=== PATIENT | male | born 1980 | race Caucasian/White ===

== ENCOUNTER 2016-05-13 11:22 | Inpatient (IN) | payer OTHER, MEDICAID ==
[~2016-05-13] VITALS: Ht 177.8 cm; Wt 179.0 kg
[~2016-05-13 11:22] MED LIST: BACL20TA PO; DOCU-41 PO; MULT1CAP33 PO; OXYB5TAB10 PO; PHEN100C11 PO
[2016-05-13 11:27] VITALS: BP 124/71; PULSE 102; RESP 18; O2SAT 99
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
[2016-05-13 13:10] LABS: BASOPHILS % (AUTO) 0.5 % (0-3); EOSINOPHILS % (AUTO) 2.3 % (0-5); MONOCYTES % (AUTO) 6.7 % (4-12); Mean Corpuscular Hemoglobin 18.7 pg (27.0-35.0); Mean Corpuscular Volume 61.8 fL (81-100); NEUTROPHILS % (AUTO) 76.2 % (40-74); Platelet Count 627 bil/L (150-400)
[2016-05-13] MEDS ORDERED: Piperacillin-Tazo 3.375 Gm Inj 3.375 GM in Dextrose 5% Minibag Plus 50 ML IV ONE (14:05)
[2016-05-13] MEDS ORDERED: MGPE IV ONE (14:10)
[2016-05-13] MEDS ORDERED: SODIUM CHLORIDE 0.9% IV ONE (14:10)
[2016-05-13] MEDS ORDERED: FOSPHENYTOIN IV ONE (14:10)
[2016-05-13 14:17] LABS: ERYTHROCYTE SEDIMENTATION RATE 109 mm/hr (0-15)
--- NOTE | 2016-05-13 14:17 | DRSVH ---
PROCEDURE: X-RAY PELVIS W/LAT HIP (RT) ([id number]) INDICATIONS: pain, fall TECHNIQUE: AP pelvis with lateral view(s) of the right hip(s). COMPARISON: [facility], CR, XR HIP 2VW RT, 10/18/2015, 16:52. [facility], CR , XR HIP 2VW RT, 02/29/2016, 16:30. [facility], CR, XR KNEE 3VW RT, 03/14/2016, 15:53. [facility], CR, PELVIS W/LAT HIP (RT) (PNL), 10/20/2013, 20:16[facility], [facility], PELVIS W/LAT HIP (RT) (PNL), 08/21/2013, 14:23. FINDINGS: Bones: No fractures or dislocations. Pelvic ring appears intact. No suspicious bony lesions. Soft tissues: The visualized bowel gas pattern is normal. No suspicious soft tissue calcifications. IMPRESSION: No. There is prominent distortion and sclerosis involving the previously fractured right hip and also associated lateral fixation plate and dynamic hip screw there are only partially visual ized by this study. Depending on the clinical status followup by nuclear remote medicine bone scan m ay be necessary, versus delayed plain film imaging or even CT scanning. Dictated by: Jose Arreola M.D. on 05/13/2016 at 13:47 Approved by: Jose Arreola M.D. on 05/13/2016 at 14:16
[2016-05-13 15:44] VITALS: BP 111/70; PULSE 87; RESP 14; O2SAT 100
--- NOTE | 2016-05-13 16:14 | DRSVH ---
PROCEDURE: CT HIP RIGHT WITH CONTRAST ([id number]) INDICATIONS: eval for deep space infection, known buttock wound TECHNIQUE: After the administration of intravenous contrast, 3 mm axial sections acquired of the pelvis, with co jennifer and sagittal reformats. For radiation dose reduction, the following was used: automated expos ure control, adjustment of mA and/or kV according to patient size. COMPARISON: [facility], CT, ABD/PELVIS W/CON (PNL), 07/02/2014, 8:34. FINDINGS: Image quality: Partially degraded by mild patient motion during image acquisition and also metal leon fact from a left-sided dynamic hip screw and a lateral fixation plate. Bones: Sclerosis appears to have progressed in relationship to the appearance by CT scanning of the p roximal right femur, with reference to the comparison CT scan from 07/02/14 when rim-enhancing fluid c ollections at been present anteriorly adjacent to the previously fractured right hip. No abnormal fl uid collections in those areas anteriorly now are found. There is, however, decubitus ulceration ext ending from the posterior right buttock area directly to the posterior border of the margin of the ac etabulum and virtually to the posterior border of the femoral head in that area. This area is quite poorly visualized related to the dense metal artifact, and therefore accurate assessment for presence of interval ostiolysis is not possible. Soft tissues: No abscess formation is found, within the soft tissues well visualized. The deep decub itus ulceration present over the right hip area posteriorly does not appear to track cephalad into th e area of adjacent bowel structures in the lower pelvis/rectum area. IMPRESSION: Extensive deep decubitus ulceration posteriorly in the buttock area to the posterior border of the ri ght femoral head. Prior hip fracture fixation on the right with lateral fixation plate and dynamic h ip screw produces metal artifact causing poor visualization exactly in the area of the deepest extent of the decubitus ulceration to the femoral head. Nuclear medicine three-phase bone scan likely is w arranted to assist in determining whether osteomyelitis may be present given this appearance. Additi onally, there is what appears to be mild interval increased sclerosis in the area of prior hip fractu re which may indicate presence of chronic osteomyelitis in the intertrochanteric area of sclerosis. A prior CT scan from 07/02/14 it identified what appears to have been abscess formation at the anterio r aspect of the right hip joint. That area has resolved. No posterior or other area of abscess form ation is found. No fistula extension to adjacent bowel structures is suspected. Dictated by: Jose Arreola M.D. on 05/13/2016 at 16:04 Approved by: Jose Arreola M.D. on 05/13/2016 at 16:12
[2016-05-13 16:34] VITALS: BP 111/70; PULSE 87; RESP 14; O2SAT 100
[2016-05-13] MEDS ORDERED: Ondansetron 2 mg/mL 2 mL Inj IVPUSH PRN (17:00)
[2016-05-13] MEDS ORDERED: Alum-Mag Hydrox-Simeth 30 mL Suspension PO PRN (17:00)
[2016-05-13] MEDS ORDERED: Polyethylene Glycol (PEG) 17 Gm Powder PO PRN (17:00)
[2016-05-13 17:01] VITALS: BP 119/69; PULSE 83; RESP 20; O2SAT 99
--- NOTE | 2016-05-13 18:16 | NUR ---
Wound Care Wound evaluation order received, pt seen at bedside. 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 Pt is paraplegic and reported to Wound Center [facility] [employer] that he has recently relapsed in his recreational drug use. Wounds Rt Ischium- stage 4 PU (POA) 4.5 cm x 6 cm x 1.5 cm, erythematous,odoriferous, pale granulation tissue, min drainage. Rt Knee (distal) 2.5 cm x 2 cm x 0.4 cm.dressing hydrogel, duoderm tape. Rt Knee (proximal) 3.7 cm x 2.7 cm x 0.2 cm, dressing hydrogel, duoderm tape. Rt Great toe 2 cm x 1 cm x 0.2 cm, dressing mepilex Rt 2nd toe 1 cm x 1 cm x o.4 cm, dressing mepilex Lt Knee (distal) 2 cm x 2.5 cm x 0.3 cm.dressing hydrogel, duoderm tape. Lt knee (proximal) 1.5 cm x 3.5 cm x 0.5 cm, dressing hydrogel, duoderm tape. Lt dorsum foot 1 cm x 1.5 cm x 0.4 cm,dressing mepilex. Question that ischial PU could be source of infection, irrigated this copiously with betadine hydrogen peroxide solution 50/50 and redressed with moist Aquacell ag and abd pad. Pt is on clinitron bed, will recheck on patient tomorrow.
--- NOTE | 2016-05-13 18:22 | NUR ---
Admit [facility]PC Admit complete using history from previous visits & without pt participation due to drowsiness and difficulty to arouse long enough to answer questions. Pt personal belongings brought in by brother and checked in by CUTTER OPERATOR. Care continues.
--- NOTE | 2016-05-13 18:35 | NUR ---
Home Meds Home meds (3) stored in drawer outside room brother to grape picker tomorrow
[2016-05-13] MEDS: 0.9% Sodium Chloride 1,000 ML IV SCH (19:25)
--- NOTE | 2016-05-13 19:39 | PCM.CONPHA ---
Subjective Date of Service: May 13, 2016 Reason for Pharmacy Consult: Anticoagulation Management Objective Vital Signs Date Time Temp Pulse Resp B/P Pulse Ox O2 Delivery O2 Flow Rate FiO2 05/13/16 17:01 36.8 83 20 119/69 99 Room Air 05/13/16 16:34 36.3 87 14 111/70 100 Room Air 05/13/16 15:44 36.3 87 14 111/70 100 Room Air 05/13/16 11:27 36.1 102 18 124/71 99 Room Air Weight (Kilograms): 179.000 Height (Feet): 5 Height (Inches): 10.00 Test 05/13/16 13:00 05/13/16 14:40 05/13/16 16:20 White Blood Count 9.6th/mm3 (3.8-10.1) Red Blood Count 4.87mil/mm3 (4.40-5.80) Hemoglobin 9.1g/dL (13.8-17.2) Hematocrit 30.1% (41.0-50.0) Mean Corpuscular Volume 61.8fL (81-100) Mean Corpuscular Hemoglobin 18.7pg (27.0-35.0) Mean Corpuscular Hemoglobin Concent 30.2% (32.0-37.0) Red Cell Distribution Width 18.5% (12.3-15.4) Platelet Count 627bil/L (150-400) Neutrophils (%) (Auto) 76.2% (40-74) Lymphocytes (%) (Auto) 14.0% (14-46) Monocytes (%) (Auto) 6.7% (4-12) Eosinophils (%) (Auto) 2.3% (0-5) Basophils (%) (Auto) 0.5% (0-3) Erythrocyte Sedimentation Rate 109mm/hr (0-15) Sodium Level 139mEq/L (134-144) Potassium Level 3.6mEq/L (3.5-5.2) Chloride Level 99mEq/L (97-108) Carbon Dioxide Level 25mmol/L (18-29) Blood Urea Nitrogen 7mg/dL (6-20) Creatinine 0.63mg/dL (0.76-1.27) Estimat Glomerular Filtration Rate 155mL/min (>59) Glucose Level 96mg/dL (60-99) Calcium Level 8.9mg/dL (8.5-10.1) Total Bilirubin 0.2mg/dL (0.0-1.2) Aspartate Amino Transf (AST/SGOT) 15U/L (0-50) Alanine Aminotransferase (ALT/SGPT) 9U/L (0-44) Alkaline Phosphatase 186U/L (25-150) C-Reactive Protein 12.4mg/dL (0.0-0.5) Total Protein 9.3g/dL (6.4-8.4) Albumin 3.2g/dL (3.4-5.0) Phenytoin (Dilantin) Level 4.2uG/mL (10.0-20.0) Hold Purple Top Tube Received (Received) Hold Blue Top Tube Received (Received) Hold Red Top Tube Received (Received) Hold [place] Top Tube Received (Received) Hold Calder[place] Top Tube Received (Received) Hold Urine Received (Received) Assessment/Plan Assessment/Plan Lovenox per Rx : Indication: Prophylaxis BMI > 56 SCR: 0.63 HCT 30.1, PLT 627 Lovenox 40mg q12h Lalo Ennis PharmD May 13, 2016 19:39
--- NOTE | 2016-05-13 20:00 | NUR ---
Percocet Verified by this RN with the pt that he's taken oxycodone in the past w/o adverse reaction. [facility] notified. Addendum: 05/13/16 at 2341 by ANGEL NOONAN RN percocet given @20:45. Pt is intermittently sleeping; yelling out and cursing when awake. When this RN checked on the pt, he yelled, "Why did you wake me up?". no adverse reaction noted from percocet at this time. Refusing care and Lovenox even after educating pt.
[2016-05-13] MEDS: oxyCODONE-Acetamin 5-325 mg Tablet PO PRN (20:44)
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
[2016-05-13 23:50] VITALS: BP 93/50; PULSE 90; RESP 20; O2SAT 98
[2016-05-14 00:41] LABS: APPEARANCE,URINE SLIGHTLY CLOUDY (CLEAR,HAZY); COLOR,URINE YELLOW (YELLOW); OCCULT BLOOD,URINE TRACE (NEGATIVE); UROBILINOGEN,URINE NORMAL (NORMAL)
[2016-05-14] MEDS: oxyCODONE-Acetamin 5-325 mg Tablet PO PRN (02:32)
[2016-05-14] MEDS: 0.9% Sodium Chloride 1,000 ML IV SCH (02:57)
[2016-05-14 03:41] VITALS: BP 144/67; PULSE 102; RESP 20; O2SAT 98
--- NOTE | 2016-05-14 04:44 | NUR ---
refusal of care/pain Pt refused to be assessed completely, turning his IV pump off; refusing IVF and lovenox even after pt education. tossing and turning in bed; yelling out and cursing when awake. requesting more pain meds for back pain. baclofen and Percocet given as ordered. Rec'd an order for OT dose of Ketorolac; given with minimal relief. Rec'd an order for 2mg IV morphine. given-pt sleeping at this time w/o s/s of discomfort. on clinitron bed. some visible dressings CDI. suprapubic cath patent draining cloudy, yellow urine. hourly rounding done.
[2016-05-14 05:22] VITALS: BP 138/72; PULSE 90; RESP 20; O2SAT 97
[2016-05-14] MEDS ORDERED: oxyCODONE-Acetamin 10-325 mg Tablet PO PRN ×3 (08:25→15:00)
[2016-05-14] MEDS ORDERED: Phenytoin 100 mg ER Capsule PO SCH (08:30)
[2016-05-14] MEDS ORDERED: Vancomycin Dose per Pharmacist XX SCH (08:30)
--- NOTE | 2016-05-14 10:09 | NUR ---
Pt left AMA Pt left AMA at approx 1005, AMA paperwork signed, pt aware of risks in leaving early. Home meds in pharmacy being retrieved by Mela Merlos RN and will meet pt in lobby to give to him. IV removed intact, no tele. All other belongings including personal WC taken with pt.
--- NOTE | 2016-05-14 10:17 | NUR ---
Social Work: AMA MANAGER OF PROGRAM notified by nursing that pt has left AMA. Veronique Kinsey MSW
--- NOTE | 2016-05-14 14:10 | DRSVH ---
PROCEDURE: NM BONE SCAN THREE PHASE RADIOPHARMACEUTICAL: 26.8 mCi Tc-99m MDP IV. INDICATIONS: right hip osteomyelitis TECHNIQUE: Multiple bone scintigrams were obtained after intravenous injection of Tc-99m MDP, including flow, bl ood pool, and delayed images centered to the region of interest. COMPARISON: [facility], CT, CT HIP RT W CON, 05/13/2016, 15:12. FINDINGS: There is slightly increased blood flow to the right hip. There is slightly increased radiot racer activity region right hip in the intermediate blood pool images. Delayed images demonstrate inc reased radiotracer uptake in the right hip. There is a focus of osteopenia within the proximal right femur compatible with presence of dynamic compression screw and sideplate placed for ORIF of intertro chanteric right hip fracture. IMPRESSION: Increased radiotracer uptake in the region of the right hip during all phases of the jose roberto dy the concerning for right hip osteomyelitis. Dictated by: Marcela Culp MD, PhD on 05/14/2016 at 14:03 Approved by: Marcela Culp MD, PhD on 05/14/2016 at 14:08
--- NOTE | 2016-05-14 17:26 | PCM.DC.MED ---
Discharge Summary Date of Service May 14, 2016 Dates of Hospitalization Date of Hospital Admission May 13, 2016 at 15:27 Date of Discharge: May 14, 2016 Providers: Admitting Physician: Blas Kowalski MD Primary Care Physician: David Lin DO Attending Physician: Blas Kowalski MD Diagnosis at Time of Discharge Diagnosis at Time of Discharge Acute encephalopathy secondary to opioid abuse Consultations Orthopedic Procedures XRay, CTs & MRIs X-Ray Interpretation Xray Interpretation: IMPRESSION: No. There is prominent distortion and sclerosis involving the previously fractured right hip and also associated lateral fixation plate and dynamic hip screw there are only partially visualized by this study. Brief History H&P performed by Patient is a 35 year old male with an extensive medical history as outlined below who is presenting to the ER after patients brother found him on the floor of his apartment. Patient is a poor historian and does not provide much relevant history, however upon speaking to the patients grand mother it appear that the patient had not been adhering to his medication regimen and was not allowing wound care to change his wound dressings for his hip. Patient additionally admits to using methamphetamine and heroin, specifically the patient mentions that he has been injecting heroin into his buttocks recently. Patient last used heroin yesterday according to the patient. As per the grandmother the patient had a seizure a few days ago and refused to go to the hospital. Today the patients brother found the patient facedown in his living room. EMT was called and the patient was arousable, however it is unclear to as the inciting factor that may have caused this. Patient at the time of exam, has a very significant wound present on his buttocks however there was some lauren purulent drainage however there is good viable tissue present. Patient will be admitted. Hospital Course Patient is a 35 year old male with a unfortunate history that is being admitted after decreased compliance to medication and dressing changes. patient was found passed out on his floor by his brother. Patient was first seen this morning, plan was to assess his buttock wound with bone scan, orthopedic was consulted. While awaiting the result, I got the report from the nurse that patient left AGAINST MEDICAL ADVICE with assistance of his brother,who taken him on wheelchair out of hospital. Buttock wound - Patient has a large sacral wound that apparently had purulent drainage on exam. - at the time of my exam, the wound was cleared of all purulent material and wound care was en route - the xray was inconclusive given the history of trauma - will advise to obtain MRI of the hip, and based on findings start antibiotics - wound care consult placed - follow up blood cultures Seizure disorder - Patient has an established seizure disorder - Patient has not been compliant with his phenytoin - His levels were sub optimal on arrival - Phenytoin infusion was given and will continue with home dose Neurogenic bladder - Patient has decreased sensation from his bladder - upon changing santana bag his urine smelled foul - will send out urine analysis DVT ppx via loveonox GI ppx not warranted Exam Vital Signs (Last) Date Time Temp Pulse Resp B/P Pulse Ox O2 Delivery O2 Flow Rate FiO2 05/14/16 05:22 37.0 90 20 138/72 97 Room Air Exam NAD, comfortably laying down on the bed no JVD, MMM, no LAD RRR, nl s1, s2 no mrg CTAB, no w,c S,ND,NT,normoactive BS+ Right buttock sterilely dressed Test 05/13/16 13:00 05/13/16 14:40 05/13/16 16:20 White Blood Count 9.6th/mm3 (3.8-10.1) Red Blood Count 4.87mil/mm3 (4.40-5.80) Hemoglobin 9.1g/dL (13.8-17.2) Hematocrit 30.1% (41.0-50.0) Mean Corpuscular Volume 61.8fL (81-100) Mean Corpuscular Hemoglobin 18.7pg (27.0-35.0) Mean Corpuscular Hemoglobin Concent 30.2% (32.0-37.0) Red Cell Distribution Width 18.5% (12.3-15.4) Platelet Count 627bil/L (150-400) Neutrophils (%) (Auto) 76.2% (40-74) Lymphocytes (%) (Auto) 14.0% (14-46) Monocytes (%) (Auto) 6.7% (4-12) Eosinophils (%) (Auto) 2.3% (0-5) Basophils (%) (Auto) 0.5% (0-3) Erythrocyte Sedimentation Rate 109mm/hr (0-15) Sodium Level 139mEq/L (134-144) Potassium Level 3.6mEq/L (3.5-5.2) Chloride Level 99mEq/L (97-108) Carbon Dioxide Level 25mmol/L (18-29) Blood Urea Nitrogen 7mg/dL (6-20) Creatinine 0.63mg/dL (0.76-1.27) Estimat Glomerular Filtration Rate 155mL/min (>59) Glucose Level 96mg/dL (60-99) Calcium Level 8.9mg/dL (8.5-10.1) Total Bilirubin 0.2mg/dL (0.0-1.2) Aspartate Amino Transf (AST/SGOT) 15U/L (0-50) Alanine Aminotransferase (ALT/SGPT) 9U/L (0-44) Alkaline Phosphatase 186U/L (25-150) C-Reactive Protein 12.4mg/dL (0.0-0.5) Total Protein 9.3g/dL (6.4-8.4) Albumin 3.2g/dL (3.4-5.0) Phenytoin (Dilantin) Level 4.2uG/mL (10.0-20.0) Hold Purple Top Tube Received (Received) Hold Blue Top Tube Received (Received) Hold Red Top Tube Received (Received) Hold Alta Top Tube Received (Received) Hold Caldera Top Tube Received (Received) Urine Color Yellow (YELLOW) Urine Appearance Slightly cloudy Urine pH 7.0 (5.0-8.0) Urine Specific Victoria 1.010 (1.003-1.035) Urine Protein Negativemg/dL (NEG,TRACE) Urine Glucose (UA) Negativemg/dL (NEGATIVE) Urine Ketones 15mg/dL (NEGATIVE) Urine Occult Blood Trace (NEGATIVE) Urine Nitrite Positive (NEGATIVE) Urine Bilirubin Negative (NEGATIVE) Urine Urobilinogen Normalmg/dL (NORMAL) Urine Leukocyte Esterase Moderate (NEGATIVE) Urine RBC 0-2/hpf (0-2) Urine WBC 11-50/hpf (0-5) Urine Epithelial Cells Occasional/hpf (NONE-MOD) Urine Crystals None seen (NONE SEEN) Urine Bacteria Many/hpf (NONE-FEW) Urine Hyaline Casts None/lpf (NONE) Urine Granular Casts None seen (NONE SEEN) Urine Waxy Casts None seen (NONE SEEN) Urine Red Blood Cell Casts None seen (NONE SEEN) Urine White Blood Cell Casts None seen (NONE SEEN) Urine Mucus None seen (None Seen) Urine Trichomonas None seen (NONE SEEN) Urine Yeast None (NONE SEEN) Urinalysis Comment Urine Culture Reflexed Indicated Hold Urine Received (Received) Discharge Medications Discharge Medications Baclofen (Baclofen) 20 Mg Tablet 20 MG PO QID (Reported) Oxybutynin Chloride (Oxybutynin Chloride) 5 Mg Tablet 5 MG PO TID (Reported) Phenytoin Sodium Extended (Phenytoin Sodium Extended) 100 Mg Capsule 300 MG PO BID (Reported) As needed Docusate Sodium (Colace) 100 Mg Capsule 100 MG PO BID PRN PRN For Constipation ( Reported) Followup Plan Disposition: pt left AGAINST MEDICAL ADVICE Time spent 30 minutes Eric Troy MD May 14, 2016 17:26
[2016-05-15] MEDS ORDERED: CIPR-231 PO (21:50)
[2016-05-15] MEDS ORDERED: CIPR-198 PO (22:01)
== END 2016-05-14 10:07 | disposition left against medical advice (07) | DRG 380 ==
LOC: SED 11:22 → MPC 15:27
PROVIDERS: ADMIT Internal Medicine; ATTEND Internal Medicine
DX: L89.314 Pressure ulcer of right buttock, stage 4 (principal); G82.22 Paraplegia, incomplete; M86.8X8 Other osteomyelitis, other site; L89.214 Pressure ulcer of right hip, stage 4; S79.911A Unspecified injury of right hip, initial encounter; G40.909 Epilepsy, unspecified, not intractable, without status epilepticus; F17.200 Nicotine dependence, unspecified, uncomplicated; N31.9 Neuromuscular dysfunction of bladder, unspecified; D50.9 Iron deficiency anemia, unspecified; Z96.641 Presence of right artificial hip joint; F11.10 Opioid abuse, uncomplicated; Y92.009 Unspecified place in unspecified non-institutional (private) residence as the place of occurrence of the external cause; Z91.19 Patient's noncompliance with other medical treatment and regimen; W19.XXXA Unspecified fall, initial encounter; V89.2XXS Person injured in unspecified motor-vehicle accident, traffic, sequela

== ENCOUNTER 2016-05-15 19:01 | Emergency (ER) | payer MEDICAID, OTHER ==
[~2016-05-15] VITALS: Ht 177.8 cm; Wt 77.3 kg
[~2016-05-15 19:01] MED LIST changes: -MULT1CAP33 PO
[2016-05-15 19:06] VITALS: BP 119/72; PULSE 127; RESP 20; O2SAT 100
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
[2016-05-15 20:17] LABS: BASOPHILS % (AUTO) 0.3 % (0-3); EOSINOPHILS % (AUTO) 3.3 % (0-5); MONOCYTES % (AUTO) 10.3 % (4-12); Mean Corpuscular Hemoglobin 18.6 pg (27.0-35.0); Mean Corpuscular Volume 62.4 fL (81-100); NEUTROPHILS % (AUTO) 64.6 % (40-74); Platelet Count 577 bil/L (150-400)
[2016-05-15 20:27] LABS: APPEARANCE,URINE SLIGHTLY CLOUDY (CLEAR,HAZY); COLOR,URINE YELLOW (YELLOW)
[2016-05-15] MEDS ORDERED: Dalbavancin Inj 1,500 MG in Dextrose 5% 500 ML IV ONE (20:30)
[2016-05-15 20:32] LABS: OCCULT BLOOD,URINE TRACE (NEGATIVE); UROBILINOGEN,URINE NORMAL (NORMAL)
[2016-05-15 20:35] LABS: Magnesium 1.9 mg/dL (1.6-2.6)
[2016-05-15] MEDS ORDERED: CIPR-231 PO (21:50)
[2016-05-15 21:52] LABS: ERYTHROCYTE SEDIMENTATION RATE > 140 mm/hr (0-15)
[2016-05-15] MEDS ORDERED: CIPR-198 PO (22:01)
== END 2016-05-15 22:11 | disposition home or self-care (01) ==
LOC: SED 19:01
DX: M86.18 Other acute osteomyelitis, other site (principal); D72.829 Elevated white blood cell count, unspecified; D64.9 Anemia, unspecified; N30.00 Acute cystitis without hematuria; B96.89 Other specified bacterial agents as the cause of diseases classified elsewhere; G82.22 Paraplegia, incomplete; G40.909 Epilepsy, unspecified, not intractable, without status epilepticus; F11.20 Opioid dependence, uncomplicated; F15.20 Other stimulant dependence, uncomplicated; L89.319 Pressure ulcer of right buttock, unspecified stage; F17.200 Nicotine dependence, unspecified, uncomplicated; Z87.440 Personal history of urinary (tract) infections; Z98.890 Other specified postprocedural states; Z96.0 Presence of urogenital implants; Z87.828 Personal history of other (healed) physical injury and trauma; Z86.14 Personal history of Methicillin resistant Staphylococcus aureus infection; Z86.19 Personal history of other infectious and parasitic diseases; Z88.5 Allergy status to narcotic agent
CPT/HCPCS: 36415; 36556; 80053; 81000; 83605; 83735; 85025; 85651; 86140; 87040; 87077; 87086; 87088; 87186; 96365; 96375; 99285; J0875; J7060